=== PATIENT | male | born 1960 | race Caucasian/White ===

== ENCOUNTER 2024-08-13 05:53 | Day surgery (SDC) | payer BC, SELFPAY ==
[2024-07-30 14:32] LABS: % Basophils 0.9 % (0-2); % Eosinophils 4.5 % (0-6); % Immature Granulocytes 0.3 % (0-0.5); % Lymphocytes 19.9 % (20.5-51.1); % Monocytes 9.3 % (1.7-9.3); % Neutrophils 65.1 % (42.2-75.2); Absolute Basophils 0.1 10^3/uL (0-0.2); Absolute Eosinophils 0.3 10^3/uL (0-0.7); Absolute Lymphocytes 1.3 10^3/uL (1.2-3.4); Absolute Monocytes 0.6 10^3/uL (0.1-0.6); Absolute Neutrophils 4.2 10^3/uL (1.4-6.5); Hematocrit 45.4 % (39.0-52.0); Hemoglobin 14.8 g/dL (13.0-18.0); Mean Corp Hgb Conc. 32.6 g/dL (33.0-37.0); Mean Corpuscular Hgb 31.8 pg (27.0-31.0); Mean Corpuscular Volume 97.6 fL (80.0-94.0); Mean Platelet Volume 9.7 fL (7.4-10.4); Nucleated Red Blood Cells % 0 % (-); Platelet Count 188 10^3/uL (130-400); Red Blood Cell Count 4.65 10^6/uL (4.70-6.10); Red Cell Dist. Width 14.3 % (11.5-14.5); White Blood Cell Count 6.5 10^3/uL (4.8-10.8)
[2024-07-30 14:43] LABS: PT 14.3 Sec (11.4-14.6)
[2024-07-30 14:52] LABS: ALT (SGPT) 26 U/L (0-50); AST (SGOT) 35 U/L (17-59); Albumin 4.9 g/dl (3.5-5.0); Alkaline Phosphatase 47 U/L (38-126); Blood Urea Nitrogen 44 mg/dl (9-20); Calcium 9.6 mg/dl (8.4-10.2); Carbon Dioxide 31 mmol/L (22-30); Chloride 101 mmol/L (98-107); Glucose 92 mg/dl (70-99); Magnesium 2.7 mg/dl (1.6-2.3); Potassium 5.2 mmol/L (3.5-5.1); Sodium 145 mmol/L (135-145); Total Bilirubin 0.6 mg/dl (0.2-1.3); Total Protein 7.5 g/dl (6.3-8.2); eGFR > 60.00
[2024-08-13] VITALS (14 sets, daily range): BP systolic 127–163; BP diastolic 71–88; BMI 32.3
[2024-08-13 08:45] LABS: ACT-LR - POC 298 Seconds (116-155)
[2024-08-13 09:08] LABS: ACT-LR - POC 287 Seconds (116-155)
--- NOTE | 2024-08-13 13:32 | W.PN.UPDATE ---
Update Note
Progress Note Update
64 YO WM s/p PVI (same day). He denies cp, sob, eliezer diet, b/l groins c/d/i soft, slight tenderness in L groin, EKG Apaced with PVC's and bifascicular block. He will continue OAC Eliquis tonight. Activity restrictions reviewed. He will f/u EP clinic
in 3 mo, continue cardiac care with Dr. Johnson. He is for d/c home after 2pm if groins stable and able to void..
[2024-08-13] MEDS: TYLENOL 650 MG PO (14:14)
--- NOTE | 2024-08-14 12:35 | ITS.CL.ABL ---
[facility] [employer] - Ablation
Ablation
Procedure Report:
ELECTROPHYSIOLOGY ABLATION STUDY
�
DATE:: August 13, 2024�����������������������������REFERRING: Dr. Da Johnson
�
INDICATION: Paroxysmal supraventricular tachycardia in the form of atrial fibrillation.��Prior ICD implant in 2018
�
HISTORY: See H and P.��
�
ANTIARRHYTHMIC DRUG: Amiodarone
�
PRE-PROCEDURE PIOTR: No intracardiac thrombus
�
PRESENTING RHYTHM: Atrial paced rhythm
�
'TIME-OUT':��called and confirmed.
�
SEDATION/ANESTHESIA:��provided via the anesthesia department using general anesthesia (LMA).
�
INTRAVENOUS/ARTERIAL ACCESS:
Right femoral venous - 8Fr
Left femoral venous - 8 Fr, 6 Fr
[id number] suture to the groin
Ultrasound guidance for bilateral femoral vein access was utilized by me to obtain access with demonstration of normal anatomy
CHADS-VASC Score:
�
HAS-Bled Score
�
PROCEDURE:
1.��A decapolar CS catheter was placed within the CS for mapping and pacing.��This was also used as the reference catheter for the 3-D map. The device was interrogated reprogrammed off for procedure and then ICD therapies turned back on at the end
of the procedure.
�
2. The intracardiac ultrasound catheter was positioned in the RA to identify the FO for targeting of transseptal puncture, assist��in identification of the pulmonary vein ostia, monitoring pre and post ablation pulmonary vein flow velocities,
monitoring for 'bubble' formation during RF application as a sign of thermal injury,��and to monitor for pericardial effusion during mapping and ablation procedure.���Left atrial size, LV ejection fraction, and pulmonary vein flows were monitored
pre and post ablation procedure. The other valves were inspected and found to be free of significant regurgitation or stenosis.
�
3.��Half of the calculated heparin bolus was administered prior to the first transeptal puncture.��Transseptal puncture was performed to diagnose RA and LA pressure so that safety of LA mapping and ablation could be further assessed, and to access
the left atrium and pulmonary veins for mapping and ablation.��This entailed advancing an 16 [place] Contour with dilator apparatus into the superior vena cava and withdrawing both (monitoring intracardiac ultrasound, fluoroscopy and tip pressure)
with the tip oriented toward the atrial septum.��The fossa ovalis was engaged (indicated by sudden displacement of the sheath tip as well as tenting of the fossa seen on intracardiac ultrasound).��Left atrial access required a pass with the
Brockenbrough needle extended.��Left atrial catheter position was confirmed by pressure monitoring (RA mean pressure 8 mm Hg and LA mean presure 14 mm Hg), LA saturation (99 %),��as well as fluoroscopy.��The sheath was advanced over the dilator and
positioned in the left atrium.����The remainder of the calculated heparin bolus was administered and heparin was
infused to maintain ACT at 300 -350 seconds throughout the case.
�
4.��RA pacing was performed via the proximal decapolar poles and LA pacing was performed via the distal decapolar poles.
�
5. A quadrapolar catheter was first positioned at the His position for His Bundle recording which was tagged via the 3-D Navex sytem, and then passed to the RVA for RV pacing and recording.
�
6. The multipolar grid and PFA catheter placed in each of the LIPV, LSPV, RSPV and the RIPV.��
�
7.��Next, a 3-D map was created using Navex.���A 3-D reconstructed CT image was compared to the 3-D Navex map to assist in anatomic interpretation, mapping and ablation.��The CT image and the NavX image were fused.
�
8. Total of 82 lesions were given to the pulmonary veins and left atrial posterior wall. Entrance next block was confirmed in all 4 pulmonary veins and the left atrial posterior wall.
�
9. Normal sinus node and AV node function noted. The ICD therapies were turned back on with AAIR�DDDR at end of procedure.
�
TOTAL FLOURO TIME: 12.6 minutes
�
TOTAL RF DURATION: 0 minutes
�
REVERSAL OF HEPARIN: 30 mg of protamine, slow IV administration
�
COMPLICATIONS:
None
Intracardiac US shows no pericardial effusion post ablation.
�
SUMMARY:��
Complex left atrial mapping and ablation.
Isolation of all 4 pulmonary veins and the left atrial posterior wall as above.
�
RECOMMENDATIONS:
1. Consider same-day discharge
2. Resume anticoagulation
3.� Ambulate in 4 hours
4.��Consider discontinuation of amiodarone at 1 to 3 months although he does have an ICD in place and does have ventricular arrhythmias
�
Copy to: Dr. Da Johnson
�
== END 2024-08-13 15:30 | disposition home or self-care (01) ==
LOC: CATH 05:53
PROVIDERS: ATTENDING PHYSICIAN Internal Medicine Cardiovascular Disease; FAMILY PHYSICIAN Internal Medicine; OTHER PHYSICIAN Internal Medicine Cardiovascular Disease
DX: I48.0 Paroxysmal atrial fibrillation (principal); Z86.74 Personal history of sudden cardiac arrest; Z95.810 Presence of automatic (implantable) cardiac defibrillator; I25.10 Atherosclerotic heart disease of native coronary artery without angina pectoris; I42.8 Other cardiomyopathies; I11.0 Hypertensive heart disease with heart failure; I50.22 Chronic systolic (congestive) heart failure; E78.5 Hyperlipidemia, unspecified; I45.2 Bifascicular block; Z85.46 Personal history of malignant neoplasm of prostate; Z79.01 Long term (current) use of anticoagulants; Z79.84 Long term (current) use of oral hypoglycemic drugs
CPT/HCPCS: C1732; C1894; C1730; C1733; C1769; C1892; C1759; 36415; 75572; 80053; 83735; 85025; 85347; 85610; 86850; 86900; 86901; 93005; 93656; Q9967

== ENCOUNTER → 2024-11-03 17:39 | Outpatient (REF) | payer BC, SELFPAY | LOC: DHSLP 17:39 | PROVIDERS: ATTENDING PHYSICIAN Nurse Practitioner; FAMILY PHYSICIAN Internal Medicine | DX: G47.33 Obstructive sleep apnea (adult) (pediatric) (principal); R09.02 Hypoxemia | CPT/HCPCS: 95800 ==